=== PATIENT | female | born 1970 | race Caucasian/White ===

== ENCOUNTER 2025-08-08 08:51 | Emergency (ER) | payer MEDICAID ==
[~2025-08-08] VITALS: Ht 172.7 cm; Wt 83.9 kg
--- NOTE | 2025-08-08 09:09 | NUR ---
PATIENT IN ROOM
--- NOTE | 2025-08-08 09:32 | NUR ---
PENDING GFR RESULTS, IV SITE, & CONSENT FOR CT EXAM. Addendum: 08/08/25 at [id number] by TRIP CERNA DISREGARD
--- NOTE | 2025-08-08 10:29 | HMCIMG ---
EXAM: CT Abdomen and Pelvis Without IV contrast CLINICAL HISTORY: lower abd pain/ constipation TECHNIQUE: Axial computed tomography images of the abdomen and pelvis without intravenous contrast. CONTRAST: No IV contrast. COMPARISON: None provided. FINDINGS: LUNG BASES: The lung bases appear clear. No pleural effusions are seen. LIVER: Unremarkable. GALLBLADDER AND BILE DUCTS: Cholecystectomy. No biliary ductal dilatation is evident. PANCREAS: Unremarkable. SPLEEN: Unremarkable. ADRENAL GLANDS: Unremarkable. KIDNEYS, URETERS, AND BLADDER: The kidneys appear within normal limits. There is no hydronephrosis or hydroureter. No urinary calculi are seen. STOMACH AND BOWEL: Unremarkable appearance of the stomach and bowel. No evidence of bowel obstruction. No evidence suggesting enteritis or colitis. APPENDIX: Normal appendix. PERITONEUM: No free fluid. No free air. LYMPH NODES: No lymphadenopathy is evident. REPRODUCTIVE: Unremarkable as visualized. VASCULATURE: No evidence of abdominal aortic aneurysm. BONES: No aggressive appearing osseous lesion. No acute osseous pathology evident. IMPRESSION: No acute intra-abdominal or pelvic abnormality. /[place]
[2025-08-08 10:57] LABS: NUCLEATED RED BLOOD CELLS 0.0 % (0.0-0.19); PLATELET COUNT (AUTO) 269.0 K/uL (130-400); RED BLOOD CELL COUNT(AUTO) 4.98 MIL/uL (4.00-5.50); RED CELL DISTRIBUTION WIDTH 13.3 % (11.0-15.5); WHITE BLOOD COUNT (AUTO) 7.7 K/uL (4.8-10.8)
[2025-08-08 11:08] LABS: CREATININE 1.0 mg/dL (0.5-1.0); GLOMERULAR FILTR. RATE CALC 67.0 mL/min (>90); GLUCOSE,RANDOM 95.0 mg/dL (70-105); SODIUM SERUM 143.0 mmol/L (136-145); UREA NITROGEN, BLOOD 10.0 mg/dL (7-18)
--- NOTE | 2025-08-08 11:22 | ERN ---
General Chief Complaint: Abdominal Pain Stated Complaint: ABD PAIN/ RECTAL PAIN Time Seen by MD: 08:55 Source: patient History of Present Illness Initial Comments Patient is a 55-year-old female coming in with multiple complaints. Per patient she has been having constipation for a couple of weeks. Along with this a couple of days ago she started having rectal discomfort which progressed to vaginal discomfort. Allergies: Coded Allergies: ciprofloxacin (Unverified Allergy, Unknown, 08/08/25) levofloxacin (Unverified Allergy, Unknown, 08/08/25) Past Medical History Past Medical History: Hyperthyroid, Migraines Past Surgical History: Hysterectomy, Cholecystectomy, Other Surgical History Other: ECTOPIC , THERON MASTECTOMY, RT OVARY SX ROS Dictation CONSTITUTIONAL: No chills, no fever, no weakness, no diaphoresis, no malaise. HEAD/FACE: No signs of trauma. EENT: No eye pain, no blurred vision, no tearing, no double vision, no ear pain, no ear discharge, no nose pain, no nasal congestion, no throat pain, no throat swelling, no mouth pain. RESPIRATORY: No cough, no orthopnea, no SOB, no stridor, no wheezing. CARDIOVASCULAR: No chest pain, no edema, no palpitations, no syncope. GASTROINTESTINAL/ABDOMINAL: No abdominal pain, no constipation, no diarrhea, no nausea, no vomiting. GENITOURINARY: No abnormal discharge, no dysuria, no frequent urination, no hematuria. No complaints of pain in the genitals. MUSCULOSKELETAL: No back pain, no gout, no joint pain, no joint swelling, no muscle pain, no muscle stiffness, no neck pain. INTEGUMENTARY: No change in color, no change in hair/nails, no dryness, no lesion, no lumps, no rash. NEUROLOGICAL/PSYCH: No anxiety, not depressed, no emotional problem, no headache, no numbness, no pre-existing deficit, no history of seizures, no tremors, no weakness. HEMATOLOGIC/LYMPHATIC: Not anemic, no history of blood clots, no apparent bleeding, no bruising, glands not swollen. All Systems Negative, Except as Noted. Physical Exam Physical Exam Dictation VITAL SIGNS: Reviewed. GENERAL APPEARANCE: Alert, oriented x3, no acute distress, obese. HEAD AND FACE: Non-traumatic. EYES: PERRL, pink conjunctivas, eyelid no trauma, anterior chamber clear. EARS: Pinnas intact and no signs of trauma or erythema. Ear canals clear and no discharge. TMs no erythema. NOSE: No discharge, no bleeding. OROPHARYNX: Mouth normal, teeth no caries, tongue pink. Pharynx clear, no erythema. Tonsils no exudates, no abscesses noted. Mucous membrane moist. NECK: Supple, non-tender, no thyromegaly, no masses, no JVD, no bruits. BREAST: Deferred. CHEST: No tenderness, no crepitus, no paradoxical movement, no retractions. LUNGS: Clear, well-ventilated, symmetric, no rales, no wheezing, no rhonchi, no stridor, good breath sounds bilaterally. HEART: Regular rate, regular rhythm, no murmur, no gallops. VASCULAR: No peripheral edema. ABDOMEN: Soft, positive bowel sounds, nondistended, no guarding, nontender, no rebound, no masses no hepatomegaly, no splenomegaly, no Wen's sign, no hernias. RECTAL: External hemorrhoid at 1:00 a.m. region GENITAL: Scattered vesicular lesions NEUROLOGICAL: Normal speech, gross motor function intact, gross sensory function intact. MUSCULOSKELETAL: Neck nontender, full range of motion, back nontender, full range of motion. EXTREMITIES: Nontender, full range of motion. SKIN: Color pink, dry, no turgor, no rash, no lacerations, no abrasions, no contusions. LYMPHATICS: Deferred. Results Laboratory and Microbiology Lab and Micro Result Laboratory Tests Test 08/08/25 10:39 White Blood Count 7.7 K/uL (4.8-10.8) Red Blood Count 4.98 MIL/uL (4.00-5.50) Hemoglobin 14.3 g/dL (12.0-16.0) Hematocrit 44.1 % (36-48) Mean Corpuscular Volume 88.6 fL (79-99) Mean Corpuscular Hemoglobin 28.7 pg (27.0-33.0) Mean Corpuscular Hemoglobin Concent 32.4 g/dL (32.0-36.0) Red Cell Distribution Width 13.3 % (11.0-15.5) Platelet Count 269 K/uL (130-400) Mean Platelet Volume 9.0 fL (7.5-10.5) Nucleated Red Blood Cells 0.0 % (0.0-0.19) Sodium Level 143 mmol/L (136-145) Potassium Level 4.3 mmol/L (3.5-5.1) Chloride Level 106 mmol/L (101-111) Carbon Dioxide Level 30 mmol/L (21-32) Blood Urea Nitrogen 10 mg/dL (7-18) Creatinine 1.0 mg/dL (0.5-1.0) Glomerular Filtration Rate Calc 67 mL/min (>90) Random Glucose 95 mg/dL (70-105) Total Calcium 9.3 mg/dL (8.5-10.1) Labs Reviewed?: Yes EKG/XRAY/US/CT/MRI CT Scan Comment [facility] [address] [place] [id number] IMAGING REPORT Signed PATIENT: LYNDA ROBERTS MR#: [id number] : 1970 SEX: F AGE: 55 LOCATION: [facility] ORDER 0 STATUS: REG ER REPORT#: [id number] SERVICE 0900 REASON: lower abd pain/ constipation ORDERING PHYSICIAN: GENEVA FULTON MD PROCEDURE: ABD PEL WO - CT ABDOMEN/PELVIS W/O CONTRAST EXAM: CT Abdomen and Pelvis Without IV contrast CLINICAL HISTORY: lower abd pain/ constipation TECHNIQUE: Axial computed tomography images of the abdomen and pelvis without intravenous contrast. CONTRAST: No IV contrast. COMPARISON: None provided. FINDINGS: LUNG BASES: The lung bases appear clear. No pleural effusions are seen. LIVER: Unremarkable. GALLBLADDER AND BILE DUCTS: Cholecystectomy. No biliary ductal dilatation is evident. PANCREAS: Unremarkable. SPLEEN: Unremarkable. ADRENAL GLANDS: Unremarkable. KIDNEYS, URETERS, AND BLADDER: The kidneys appear within normal limits. There is no hydronephrosis or hydroureter. No urinary calculi are seen. STOMACH AND BOWEL: Unremarkable appearance of the stomach and bowel. No evidence of bowel obstruction. No evidence suggesting enteritis or colitis. APPENDIX: Normal appendix. PERITONEUM: No free fluid. No free air. LYMPH NODES: No lymphadenopathy is evident. REPRODUCTIVE: Unremarkable as visualized. VASCULATURE: No evidence of abdominal aortic aneurysm. BONES: No aggressive appearing osseous lesion. No acute osseous pathology evident. IMPRESSION: No acute intra-abdominal or pelvic abnormality. /[place] DICTATED BY: TARIK IRWIN MD DATE: 08/08/251127 ELECTRONICALLY SIGNED BY: TARIK IRWIN MD DATE: 08/08/251127 [facility] MDM: Differential diagnosis: Internal hemorrhoids, vesicular lesions, Kaylyn, history of constipation, Rationale: Tests considered and ordered secondary to shared decision making include: labs, ECG and radiology Previous outside records reviewed: Old ER visits. Risk of complication and/or morbidity or mortality of patient management: None Medications-Per medication reconciliation Need for hospitalization: Patient does meet criteria for hospitalization. Need for emergency major/minor surgery: Gricel In his is a 55-year-old female coming in with multiple complaints. Per patient she has been having a rectal discomfort as well as vaginal discomfort. Long with those two symptoms patient states that she has been very constipated and has been having abdominal discomfort. Laboratory workup including CT did not disclose any findings on physical exam that has vesicular lesions on the labia majora consistent with a Kaylyn infection. Also advised her other possibilities I did advised her appropriate follow up with the PCP for ongoing evaluation rectal exam performed chaperoned by nurses internal hemorrhoids felt. Patient will be receiving hemorrhoid medication. ED Course Orders Procedure Category Date Status Time Cbc Without LAB 08/08/25 Complete Differential 09:00 Basic Metabolic Panel LAB 08/08/25 Complete 09:00 Ct Abdomen/Pelvis W/O CT 08/08/25 Resulted Contrast 09:00 Ketorolac PHA 08/08/25 Complete Tromethamine 30mg/Ml 11:00 Ketorolac PHA 08/08/25 Complete Tromethamine 30mg/Ml 11:30 Current Medications Medications (Trade) Dose Ordered Sig/Brett Route PRN Reason Start Time Stop Time Status Last Admin Dose Admin Ketorolac Tromethamine (toRADol) 30 mg ONCE ONCE IM 08/08/25 11:30 08/08/25 11:31 DC 08/08/25 11:44 Ketorolac Tromethamine (toRADol) 30 mg ONCE ONCE IVP 08/08/25 11:00 08/08/25 11:12 DC Vital Signs Date Time Temp Pulse Resp B/P (MAP) Pulse Ox O2 Delivery O2 Flow Rate FiO2 08/08/25 11:00 98.2 79 20 121/80 97 Room Air* 0 21 08/08/25 09:09 98.2 107 20 126/93 99 Room Air* 0 21 08/08/25 08:57 98.2 107 20 126/93 99 Room Air 0 DX & DISP Disposition: Discharge Departure Impression: Primary Impression: Internal hemorrhoids Additional Impression: Kaylyn vaginitis Condition: Stable Scripts Lidocaine/Phenyl/Glycer/Petrol (Preparation H Rapid-Lido Cream) 5 %-0.25 %-14.4 %-15 % Cream..g. 28 GM TP DAILY for 7 Days, #1 TUBE Prov: GENEVA FULTON MD 08/08/25 Additional Instructions: FOLLOW-UP WITH PRIMARY CARE PROVIDER IN 1 TO 2 DAYS. TAKE MEDICATIONS DIRECTED HERE IN THE EMERGENCY ROOM. OKAY TO CONTINUE HOME MEDICATIONS UNLESS OTHERWISE DISCUSSED DURING YOUR VISIT IN THE EMERGENCY ROOM TODAY. RETURN TO YOUR NEAREST EMERGENCY ROOM IF SYMPTOMS WORSEN OR IF THERE IS NO IMPROVEMENT. CALL 911 IF YOU NEED IMMEDIATE ASSISTANCE. TAKE TYLENOL [id number] NEEDED AND IF NO CONTRAINDICATIONS ARE PRESENT. INCREASE ORAL HYDRATION. A WOUND CULTURE OR URINE CULTURE WAS ORDERED HERE IN THE EMERGENCY ROOM DEPARTMENT PLEASE FOLLOW-UP WITH PRIMARY CARE PROVIDER AND ADVISE THEM TO GET REPORTS FROM OUR FACILITY. IF YOU HAD ANY CHANCE WRAP/SPLINTS THAT WERE APPLIED HERE, PLEASE DO NOT REMOVE THEM UNTIL YOU SEE YOUR PRIMARY CARE OR SPECIALTY. Referrals: Referrals: SELF,REFERRAL (PCP) KAYLIN SHAVER MD, LUIS A MD Time of Disposition: 12:40 GENEVA FULTON MD Aug 08, 2025 11:22
[2025-08-08 12:45] VITALS: BP 128/82; PULSE 64; RESP 20; TEMP 98.2; O2SAT 95
== END 2025-08-08 13:05 | disposition home or self-care (01) ==
LOC: EDH 08:51
DX: K64.8 Other hemorrhoids (principal); B37.31 Acute candidiasis of vulva and vagina; Z87.59 Personal history of other complications of pregnancy, childbirth and the puerperium; Z88.1 Allergy status to other antibiotic agents; Z90.13 Acquired absence of bilateral breasts and nipples; Z90.49 Acquired absence of other specified parts of digestive tract; Z90.710 Acquired absence of both cervix and uterus
CPT/HCPCS: 99285; 74176; 80048; 85027; 36415; 96372; J1885